=== PATIENT | female | born 1995 | race Caucasian/White ===

== ENCOUNTER 2022-10-15 18:22 | Emergency (ER) | payer OTHER ==
[~2022-10-15] VITALS: Ht 157.5 cm; Wt 39.7 kg
[2022-10-15 18:51] VITALS: BP 107/66
--- NOTE | 2022-10-15 19:40 | NUR ---
CAMILA Larose examining patient.
--- NOTE | 2022-10-15 19:57 | NUR ---
Pelvic exam performed by CAMILA Larose with CHATA Davis at bedside for entire examination. Patient tolerated procedure well. Patient assisted to position of comfort after examination.
--- NOTE | 2022-10-15 20:18 | NUR ---
Patient can not provide urine sample this time, CAMILA Larose notified.
[2022-10-15 20:21] VITALS: BP 108/66
--- NOTE | 2022-10-15 20:21 | NUR ---
Patient discharged with v/s stable. Written and verbal after care instructions given and explained. Patient verbalized understanding. Ambulatory with steady gait. All questions addressed prior to discharge. Advised to follow up with PMD.
== END 2022-10-15 20:21 | disposition home or self-care (01) ==
LOC: MED 18:22
DX: T19.2XXA Foreign body in vulva and vagina, initial encounter (principal); X58.XXXA Exposure to other specified factors, initial encounter; Y93.89 Activity, other specified; Y92.89 Other specified places as the place of occurrence of the external cause; Y99.8 Other external cause status
CPT/HCPCS: 87210; 99284

== ENCOUNTER 2023-02-28 12:09 | Emergency (ER) | payer OTHER ==
[~2023-02-28] VITALS: Ht 157.5 cm; Wt 39.0 kg
[2023-02-28 12:15] VITALS: BP 129/75; PULSE 75; RESP 20; TEMP 98; O2SAT 98
[2023-02-28 12:58] VITALS: O2SAT 98
[2023-02-28 14:00] LABS: EOSINOPHILS % (AUTO) 0.6 % (0.0-4.0); HEMATOCRIT 38.5 % (36-48); HEMOGLOBIN 13.2 g/dL (12.0-16.0); LYMPHOCYTES # (AUTO) 1.4 K/uL (2.5-16.5); MEAN CORPUSCULAR HGB CONC 34 g/dL (33-37); MEAN CORPUSCULAR VOLUME 89.9 fL (80-94); MONOCYTES # (AUTO) 0.4 K/uL (0.8-1.0); RED BLOOD CELL COUNT(AUTO) 4.28 MIL/uL (4.20-5.40); WHITE BLOOD COUNT (AUTO) 4.9 K/uL (4.8-10.8)
[2023-02-28 14:03] LABS: BASOPHILS % (AUTO) 0.6 % (0.0-2.0); LYMPHOCYTES % (AUTO) 27.9 % (20.5-51.1); MEAN CORPUSCULAR HEMOGLOBIN 31 pg (27-31); MONOCYTES % (AUTO) 8.2 % (1.7-9.3); NEUTROPHILS # (AUTO) 3.1 K/uL (1.8-7.7); NEUTROPHILS % (AUTO) 62.7 % (42.2-75.2); PLATELET COUNT (AUTO) 227 K/uL (140-450); RED CELL DISTRIBUTION WIDTH 12.3 % (11.6-13.7)
[2023-02-28 15:01] VITALS: BP 122/75; PULSE 80; RESP 20; TEMP 98
[2023-02-28 15:10] VITALS: O2SAT 99
== END 2023-02-28 15:01 | disposition home or self-care (01) ==
LOC: MED 12:09
DX: N93.9 Abnormal uterine and vaginal bleeding, unspecified (principal); Z79.899 Other long term (current) drug therapy
CPT/HCPCS: 36415; 84702; 85025; 86900; 86901; 99284